=== PATIENT | male | born 1955 | race Caucasian/White ===

== ENCOUNTER 2016-07-12 22:27 | Inpatient (IN) | payer OTHER, MEDICARE ==
[2016-07-12 23:02] LABS: BASOPHIL 0.5 % (0-2); EOSINOPHIL 0.1 % (0-5); HCT 50.1 % (42.0-52.0); HGB 16.1 g/dl (13.2-18.0); MCH 29.1 pg (25.0-31.0); MCHC 32.1 g/dL (32.0-36.0); MCV 90.6 fL (78.0-100.0); MONOCYTE 4.6 % (0-12); MPV 10.4 fL (6.0-9.5); NEUTROPHIL 87.8 % (41-80); PLT 213 K/uL (150-400); RBC 5.53 M/uL (4.70-6.00); WBC 13.2 K/uL (4.0-10.5)
[2016-07-12 23:03] LABS: BILIRUBIN NEGATIVE (NEGATIVE); BLOOD TRACE-INTACT Ery/uL (NEGATIVE); CLARITY CLEAR (CLEAR); COLOR YELLOW (YELLOW); GLUCOSE (U) NORMAL (NORMAL); KETONE (U) NEGATIVE (NEGATIVE); LEUKOCYTES NEGATIVE Leu/uL (NEGATIVE); NITRITE NEGATIVE (NEGATIVE); PROTEIN TRACE (LOW) mg/dL (NEGATIVE); SPECIFIC GRAVITY 1.025 (1.001-1.030); UROBILINOGEN 0.2 mg/dL (0.2-1.0); pH 5.5 (5.0-9.0)
[2016-07-12 23:08] LABS: BACTERIA TRACE; MUCOUS MODERATE
[2016-07-12 23:12] LABS: INR 1.11 (0.9-1.2); PROTHROMBIN TIME 13.9 SECONDS (11.7-14.0); PTT 29.7 SECONDS (23.2-31.4)
[2016-07-12 23:13] LABS: AMPHETAMINES NEGATIVE (NEGATIVE); BARBITURATES NEGATIVE (NEGATIVE); BENZODIAZEPINES NEGATIVE (NEGATIVE); COCAINE NEGATIVE (NEGATIVE); MARIJUANA (THC) NEGATIVE (NEGATIVE); METHADONE NEGATIVE (NEGATIVE); TRICYCLIC ANTIDEPRESSANT POSITIVE (NEGATIVE)
[2016-07-12 23:24] LABS: CKMB 4.33 ng/mL (0.97-4.94); LACTIC ACID 2.4 mmol/L (0.5-2.2); TROPONIN T 0.026 ng/mL
[2016-07-12 23:25] LABS: ALBUMIN 4.5 g/dL (3.4-4.8); BILIRUBIN - TOTAL 0.4 mg/dL (0.1-1.0); CREATININE 1.2 mg/dL (0.7-1.2); GLOBULIN (CALCULATION) 2.7 g/dL (2.2-4.2); POTASSIUM 4.8 mmol/L (3.5-5.1); TOTAL PROTEIN 7.2 g/dL (6.4-8.3)
[2016-07-12 23:47] LABS: ACETAMINOPHEN (TYLENOL) < 5.0 ug/mL (10.0-30.0); SALICYLATE < 6 ug/mL (0-300)
[2016-07-13 05:12] LABS: BASOPHIL 0.1 % (0-2); EOSINOPHIL 0 % (0-5); HCT 41.8 % (42.0-52.0); HGB 13.6 g/dl (13.2-18.0); LYMPHOCYTE 7.7 % (15-48); MCHC 32.5 g/dL (32.0-36.0); MCV 89.1 fL (78.0-100.0); MPV 10.5 fL (6.0-9.5); NEUTROPHIL 91.2 % (41-80); PLT 170 K/uL (150-400); RBC 4.69 M/uL (4.70-6.00); RDW 14.8 % (11.5-14.0); WBC 7.9 K/uL (4.0-10.5)
[2016-07-13 05:33] LABS: CKMB 2.34 ng/mL (0.97-4.94); TROPONIN T < 0.010 ng/mL
[2016-07-13 05:35] LABS: CREATININE 0.9 mg/dL (0.7-1.2); POTASSIUM 4.3 mmol/L (3.5-5.1)
[2016-07-13 11:35] LABS: CREATININE 0.9 mg/dL (0.7-1.2); MAGNESIUM 1.57 mg/dL (1.40-2.10); POTASSIUM 4.8 mmol/L (3.5-5.1)
[2016-07-13 11:36] LABS: CKMB 2.17 ng/mL (0.97-4.94); TROPONIN T < 0.010 ng/mL
[2016-07-14 04:13] LABS: BASOPHIL 0 % (0-2); EOSINOPHIL 0 % (0-5); HCT 41.9 % (42.0-52.0); HGB 13.7 g/dl (13.2-18.0); LYMPHOCYTE 9.4 % (15-48); MCH 28.6 pg (25.0-31.0); MCHC 32.7 g/dL (32.0-36.0); MCV 87.5 fL (78.0-100.0); MONOCYTE 3.3 % (0-12); MPV 10.8 fL (6.0-9.5); NEUTROPHIL 87.3 % (41-80); PLT 172 K/uL (150-400); RBC 4.79 M/uL (4.70-6.00); RDW 14.5 % (11.5-14.0); WBC 9.6 K/uL (4.0-10.5)
[2016-07-14 04:41] LABS: ALBUMIN 3.4 g/dL (3.4-4.8); BILIRUBIN - TOTAL 0.3 mg/dL (0.1-1.0); CREATININE 0.9 mg/dL (0.7-1.2); GLOBULIN (CALCULATION) 1.7 g/dL (2.2-4.2); MAGNESIUM 1.73 mg/dL (1.40-2.10); POTASSIUM 4.1 mmol/L (3.5-5.1); TOTAL PROTEIN 5.1 g/dL (6.4-8.3)
[2016-07-15 04:39] LABS: BASOPHIL 0 % (0-2); EOSINOPHIL 0 % (0-5); HGB 13.6 g/dl (13.2-18.0); LYMPHOCYTE 7.9 % (15-48); MCH 28.8 pg (25.0-31.0); MCHC 33.2 g/dL (32.0-36.0); MCV 86.7 fL (78.0-100.0); MONOCYTE 4.3 % (0-12); NEUTROPHIL 87.8 % (41-80); PLT 187 K/uL (150-400); RBC 4.73 M/uL (4.70-6.00); RDW 14.7 % (11.5-14.0); WBC 9.6 K/uL (4.0-10.5)
[2016-07-15 04:55] LABS: CREATININE 0.8 mg/dL (0.7-1.2); POTASSIUM 4.2 mmol/L (3.5-5.1)
[2016-07-16 04:56] LABS: BASOPHIL 0 % (0-2); EOSINOPHIL 0 % (0-5); HCT 41.1 % (42.0-52.0); HGB 13.5 g/dl (13.2-18.0); LYMPHOCYTE 5.9 % (15-48); MCH 28.5 pg (25.0-31.0); MCHC 32.8 g/dL (32.0-36.0); MCV 86.7 fL (78.0-100.0); MONOCYTE 3.6 % (0-12); NEUTROPHIL 90.5 % (41-80); PLT 172 K/uL (150-400); RBC 4.74 M/uL (4.70-6.00); RDW 14.8 % (11.5-14.0)
[2016-07-16 05:02] LABS: WBC 8.4 K/uL (4.0-10.5)
[2016-07-16 05:19] LABS: ALBUMIN 3.4 g/dL (3.4-4.8); BILIRUBIN - TOTAL 0.5 mg/dL (0.1-1.0); CREATININE 0.8 mg/dL (0.7-1.2); GLOBULIN (CALCULATION) 1.4 g/dL (2.2-4.2); MAGNESIUM 2.06 mg/dL (1.40-2.10); POTASSIUM 4.2 mmol/L (3.5-5.1); TOTAL PROTEIN 4.8 g/dL (6.4-8.3)
[2016-07-17 04:41] LABS: BASOPHIL 0 % (0-2); EOSINOPHIL 0 % (0-5); HCT 41.5 % (42.0-52.0); HGB 13.8 g/dl (13.2-18.0); LYMPHOCYTE 5.5 % (15-48); MCH 28.8 pg (25.0-31.0); MCHC 33.3 g/dL (32.0-36.0); MCV 86.5 fL (78.0-100.0); MONOCYTE 3.1 % (0-12); MPV 11.1 fL (6.0-9.5); NEUTROPHIL 91.4 % (41-80); PLT 169 K/uL (150-400); RDW 14.7 % (11.5-14.0); WBC 7.7 K/uL (4.0-10.5)
[2016-07-17 05:18] LABS: CREATININE 0.9 mg/dL (0.7-1.2); MAGNESIUM 2.05 mg/dL (1.40-2.10); POTASSIUM 4.1 mmol/L (3.5-5.1)
[2016-07-18 06:46] LABS: BASOPHIL 0 % (0-2); EOSINOPHIL 0 % (0-5); HCT 40.6 % (42.0-52.0); HGB 13.5 g/dl (13.2-18.0); LYMPHOCYTE 4.2 % (15-48); MCH 28.7 pg (25.0-31.0); MCHC 33.3 g/dL (32.0-36.0); MCV 86.2 fL (78.0-100.0); MONOCYTE 3.8 % (0-12); MPV 11.1 fL (6.0-9.5); PLT 176 K/uL (150-400); RBC 4.71 M/uL (4.70-6.00); RDW 14.4 % (11.5-14.0); WBC 9.6 K/uL (4.0-10.5)
[2016-07-18 06:59] LABS: CREATININE 0.8 mg/dL (0.7-1.2); POTASSIUM 3.7 mmol/L (3.5-5.1)
[2016-07-19 04:04] LABS: HCT 46.4 % (42.0-52.0); HGB 15.3 g/dl (13.2-18.0); MCH 28.3 pg (25.0-31.0); MCV 85.9 fL (78.0-100.0); MPV 11.3 fL (6.0-9.5); RBC 5.4 M/uL (4.70-6.00); RDW 14.6 % (11.5-14.0)
[2016-07-19 04:28] LABS: CREATININE 0.9 mg/dL (0.7-1.2); MAGNESIUM 2.08 mg/dL (1.40-2.10); POTASSIUM 4.4 mmol/L (3.5-5.1)
[2016-07-20 05:21] LABS: BASOPHIL 0 % (0-2); EOSINOPHIL 0 % (0-5); HCT 40.4 % (42.0-52.0); HGB 13.3 g/dl (13.2-18.0); LYMPHOCYTE 3.2 % (15-48); MCH 28.6 pg (25.0-31.0); MCHC 32.9 g/dL (32.0-36.0); MCV 86.9 fL (78.0-100.0); MONOCYTE 3.1 % (0-12); MPV 10.7 fL (6.0-9.5); NEUTROPHIL 93.7 % (41-80); PLT 169 K/uL (150-400); RBC 4.65 M/uL (4.70-6.00); RDW 14.6 % (11.5-14.0); WBC 13.1 K/uL (4.0-10.5)
[2016-07-20 05:37] LABS: CREATININE 0.9 mg/dL (0.7-1.2); POTASSIUM 4.5 mmol/L (3.5-5.1)
[2016-07-20] MEDS ORDERED: TOPROL XL100 MG PO (10:40)
[2016-07-20] MEDS ORDERED: ALDACTONE25 MG PO (10:40)
[2016-07-20] MEDS ORDERED: MELATIN3 MG PO (10:41)
[2016-07-20] MEDS ORDERED: ASPIRIN CHEWABL81 MG PO (10:41)
[2016-07-20] MEDS ORDERED: DILTIAZEM 24HR300 M1 PO (10:41)
[2016-07-20] MEDS ORDERED: XANAX0.5 MG PO (10:43)
[2016-07-20] MEDS ORDERED: DUONEB 2.5-0.5M1 AMP NEB (10:43)
[2016-07-20] MEDS ORDERED: MEDROL 4MG DOSEP4 MG PO (10:43)
[2017-01-04] MEDS ORDERED: DIGITEK250 MCG PO (10:41)
[2017-01-04] MEDS ORDERED: PREDNISONE 10MG10 MG PO (13:10)
[2017-01-04] MEDS ORDERED: NYSTATIN SUSP1 ML/ML SSW (13:10)
[2017-01-04] MEDS ORDERED: CEFDINIR300 MG PO (13:11)
[2017-01-04] MEDS ORDERED: AZITHROMYCIN250 MG PO (13:12)
[2017-01-04] MEDS ORDERED: NEURONTIN400 MG PO (13:20)
[2017-01-04] MEDS ORDERED: PROAIR HFA8.5 GM INH (13:20)
[2017-01-04] MEDS ORDERED: SYMBICORT 16010.2 GM INH (13:20)
[2017-01-04] MEDS ORDERED: DEPAKOTE250 MG PO (13:20)
[2017-01-04] MEDS ORDERED: ZOLOFT50 MG PO (13:23)
[2017-01-04] MEDS ORDERED: CARDIZEM CD240 MG PO (17:09)
== END 2016-07-20 13:15 | disposition home health service (06) | DRG 871 ==
LOC: FER 22:27 → FICU 07-13 01:06 → FTCU 07-17 16:00
PROVIDERS: Emergency Medicine; Internal Medicine; Internal Medicine Nephrology; ADMIT Internal Medicine
PROC: 0BH17EZ Insertion of Endotracheal Airway into Trachea, Via Natural or Artificial Opening (ICD-10-PCS; principal; 2016-07-13)
PROC: 5A1945Z Respiratory Ventilation, 24-96 Consecutive Hours (ICD-10-PCS; 2016-07-13)
DX: A41.9 Sepsis, unspecified organism (principal); J18.9 Pneumonia, unspecified organism; J96.21 Acute and chronic respiratory failure with hypoxia; G93.41 Metabolic encephalopathy; I13.0 Hypertensive heart and chronic kidney disease with heart failure and stage 1 through stage 4 chronic kidney disease, or unspecified chronic kidney disease; N17.9 Acute kidney failure, unspecified; E87.2 Acidosis; J44.1 Chronic obstructive pulmonary disease with (acute) exacerbation; N18.3 Chronic kidney disease, stage 3 (moderate); I50.32 Chronic diastolic (congestive) heart failure; J96.22 Acute and chronic respiratory failure with hypercapnia; R65.20 Severe sepsis without septic shock; T40.2X1A Poisoning by other opioids, accidental (unintentional), initial encounter; I25.10 Atherosclerotic heart disease of native coronary artery without angina pectoris; Z79.01 Long term (current) use of anticoagulants; I48.2 Chronic atrial fibrillation; F17.200 Nicotine dependence, unspecified, uncomplicated; Z79.82 Long term (current) use of aspirin; Z88.0 Allergy status to penicillin; E78.00 Pure hypercholesterolemia, unspecified; R73.9 Hyperglycemia, unspecified; F31.9 Bipolar disorder, unspecified
CPT/HCPCS: 31500; 36415; 36600; 70450; 71010; 80048; 80053; 80061; 80162; 80305; 81001; 82140; 82550; 82553; 82803; 82962; 83605; 83735; 83874; 84484; 85025; 85610; 85730; 87040; 87070; 87088; 87205; 92950; 93005; 94002; 94010; 94640; 94664; 94667; 94668; 97110; 97116; 97162; 97166; 97530; 97530-GP; 97535; C9113; G0480; J0456; J0692; J1160; J1170; J1644; J1956; J2270; J2310; J2405; J2704; J2930

== ENCOUNTER 2016-07-22 17:58 | Inpatient (IN) | payer MEDICARE, OTHER ==
[~2016-07-22 17:58] MED LIST: ALDACTONE25 MG PO; ASPIRIN CHEWABL81 MG PO; DILTIAZEM 24HR300 M1 PO; DUONEB 2.5-0.5M1 AMP NEB; MEDROL 4MG DOSEP4 MG PO; MELATIN3 MG PO; TOPROL XL100 MG PO; XANAX0.5 MG PO
[2016-07-22 18:23] LABS: BASOPHIL 0.1 % (0-2); EOSINOPHIL 0.1 % (0-5); HCT 53.1 % (42.0-52.0); HGB 16.9 g/dl (13.2-18.0); MCH 28.6 pg (25.0-31.0); MCHC 31.8 g/dL (32.0-36.0); MONOCYTE 8.4 % (0-12); MPV 10.6 fL (6.0-9.5); NEUTROPHIL 86.4 % (41-80); PLT 255 K/uL (150-400); RDW 15.5 % (11.5-14.0)
[2016-07-22 18:26] LABS: WBC 23.8 K/uL (4.0-10.5)
[2016-07-22 18:29] LABS: INR 0.92 (0.9-1.2); PTT 22.4 SECONDS (23.2-31.4)
[2016-07-22 18:40] LABS: CREATININE 0.9 mg/dL (0.7-1.2); POTASSIUM 4.1 mmol/L (3.5-5.1)
[2016-07-22 18:41] LABS: TROPONIN T < 0.010 ng/mL
[2016-07-22 18:43] LABS: PRO-BNP 2588 pg/mL (0-125)
[2016-07-22 19:22] LABS: BILIRUBIN NEGATIVE (NEGATIVE); BLOOD NEGATIVE Ery/uL (NEGATIVE); CLARITY CLEAR (CLEAR); COLOR COLORLESS (YELLOW); GLUCOSE (U) NORMAL (NORMAL); KETONE (U) NEGATIVE (NEGATIVE); LEUKOCYTES NEGATIVE Leu/uL (NEGATIVE); NITRITE NEGATIVE (NEGATIVE); PROTEIN NEGATIVE (NEGATIVE); UROBILINOGEN 0.2 mg/dL (0.2-1.0); pH 5.5 (5.0-9.0)
[2016-07-22 19:35] LABS: AMPHETAMINES NEGATIVE (NEGATIVE); BARBITURATES NEGATIVE (NEGATIVE); BENZODIAZEPINES NEGATIVE (NEGATIVE); COCAINE NEGATIVE (NEGATIVE); MARIJUANA (THC) NEGATIVE (NEGATIVE); METHADONE NEGATIVE (NEGATIVE); TRICYCLIC ANTIDEPRESSANT NEGATIVE (NEGATIVE)
[2016-07-23 04:39] LABS: BASOPHIL 0.1 % (0-2); EOSINOPHIL 0 % (0-5); HCT 44.2 % (42.0-52.0); HGB 14.1 g/dl (13.2-18.0); LYMPHOCYTE 2.4 % (15-48); MCH 28.6 pg (25.0-31.0); MCHC 31.9 g/dL (32.0-36.0); MCV 89.7 fL (78.0-100.0); MONOCYTE 2.2 % (0-12); MPV 10.8 fL (6.0-9.5); NEUTROPHIL 95.3 % (41-80); PLT 199 K/uL (150-400); RBC 4.93 M/uL (4.70-6.00); RDW 15.2 % (11.5-14.0); WBC 17.4 K/uL (4.0-10.5)
[2016-07-23 04:52] LABS: BILIRUBIN - TOTAL 0.4 mg/dL (0.1-1.0); CREATININE 0.7 mg/dL (0.7-1.2); GLOBULIN (CALCULATION) 1.4 g/dL (2.2-4.2); POTASSIUM 4.4 mmol/L (3.5-5.1); TOTAL PROTEIN 4.4 g/dL (6.4-8.3)
--- NOTE | 2016-07-24 03:00 | NUR ---
TIME CHANGED FROM 0200 TO 0300 EST.
[2016-07-24 03:49] LABS: HCT 40.1 % (42.0-52.0); MCH 28.7 pg (25.0-31.0); MCHC 32.4 g/dL (32.0-36.0); MCV 88.5 fL (78.0-100.0); MPV 10.6 fL (6.0-9.5); RBC 4.53 M/uL (4.70-6.00); RDW 15.2 % (11.5-14.0); WBC 15.4 K/uL (4.0-10.5)
[2016-07-24 04:07] LABS: CREATININE 0.9 mg/dL (0.7-1.2)
[2016-07-25 03:55] LABS: HCT 41.2 % (42.0-52.0); HGB 13.3 g/dl (13.2-18.0); MCH 28.6 pg (25.0-31.0); MCHC 32.3 g/dL (32.0-36.0); MCV 88.6 fL (78.0-100.0); MPV 10.1 fL (6.0-9.5); RBC 4.65 M/uL (4.70-6.00); RDW 15.2 % (11.5-14.0); WBC 15.3 K/uL (4.0-10.5)
[2016-07-25 04:09] LABS: CREATININE 0.9 mg/dL (0.7-1.2)
[2016-07-25 18:42] LABS: BILIRUBIN NEGATIVE (NEGATIVE); BLOOD NEGATIVE Ery/uL (NEGATIVE); CLARITY CLEAR (CLEAR); COLOR YELLOW (YELLOW); GLUCOSE (U) NORMAL (NORMAL); KETONE (U) NEGATIVE (NEGATIVE); LEUKOCYTES NEGATIVE Leu/uL (NEGATIVE); NITRITE NEGATIVE (NEGATIVE); PROTEIN NEGATIVE (NEGATIVE); SPECIFIC GRAVITY <=1.005 (1.001-1.030); UROBILINOGEN 0.2 mg/dL (0.2-1.0)
[2016-07-25 18:50] LABS: BACTERIA TRACE; SQUAMOUS EPITHELIAL CELLS RARE; URINARY RBC RARE; URINARY WBC RARE
[2016-07-26 04:09] LABS: BASOPHIL 0 % (0-2); EOSINOPHIL 1.2 % (0-5); HCT 40.5 % (42.0-52.0); MCH 28.6 pg (25.0-31.0); MCHC 32.1 g/dL (32.0-36.0); MONOCYTE 6.9 % (0-12); MPV 10.5 fL (6.0-9.5); NEUTROPHIL 70.9 % (41-80); PLT 188 K/uL (150-400); RBC 4.55 M/uL (4.70-6.00); RDW 15.3 % (11.5-14.0)
[2016-07-26 04:30] LABS: ALBUMIN 3.2 g/dL (3.4-4.8); BILIRUBIN - TOTAL 0.4 mg/dL (0.1-1.0); CREATININE 0.8 mg/dL (0.7-1.2); GLOBULIN (CALCULATION) 1.5 g/dL (2.2-4.2); POTASSIUM 4.2 mmol/L (3.5-5.1); TOTAL PROTEIN 4.7 g/dL (6.4-8.3)
[2016-07-27] MEDS ORDERED: CARDIZEM CD180 MG PO (17:09)
[2016-07-27] MEDS ORDERED: BUMEX1 MG PO (17:09)
[2017-01-04] MEDS ORDERED: DIGITEK250 MCG PO (10:41)
[2017-01-04] MEDS ORDERED: NYSTATIN SUSP1 ML/ML SSW (13:10)
[2017-01-04] MEDS ORDERED: PREDNISONE 10MG10 MG PO (13:10)
[2017-01-04] MEDS ORDERED: CEFDINIR300 MG PO (13:11)
[2017-01-04] MEDS ORDERED: AZITHROMYCIN250 MG PO (13:12)
[2017-01-04] MEDS ORDERED: PROAIR HFA8.5 GM INH (13:20)
[2017-01-04] MEDS ORDERED: DEPAKOTE250 MG PO (13:20)
[2017-01-04] MEDS ORDERED: NEURONTIN400 MG PO (13:20)
[2017-01-04] MEDS ORDERED: SYMBICORT 16010.2 GM INH (13:20)
[2017-01-04] MEDS ORDERED: ZOLOFT50 MG PO (13:23)
[2017-01-04] MEDS ORDERED: CARDIZEM CD240 MG PO (17:09)
== END 2016-07-27 13:29 | disposition home health service (06) | DRG 189 ==
LOC: FER 17:58 → FICU 21:21 → FTCU 07-25 10:58
PROVIDERS: Internal Medicine; Nurse Practitioner Family; ADMIT Internal Medicine
DX: J96.22 Acute and chronic respiratory failure with hypercapnia (principal); R65.11 Systemic inflammatory response syndrome (SIRS) of non-infectious origin with acute organ dysfunction; G93.40 Encephalopathy, unspecified; G93.41 Metabolic encephalopathy; J44.1 Chronic obstructive pulmonary disease with (acute) exacerbation; I11.9 Hypertensive heart disease without heart failure; I10 Essential (primary) hypertension; E87.70 Fluid overload, unspecified; F17.200 Nicotine dependence, unspecified, uncomplicated; F11.10 Opioid abuse, uncomplicated; J44.9 Chronic obstructive pulmonary disease, unspecified; F43.10 Post-traumatic stress disorder, unspecified; F42.9 Obsessive-compulsive disorder, unspecified; I25.10 Atherosclerotic heart disease of native coronary artery without angina pectoris; J96.21 Acute and chronic respiratory failure with hypoxia; I48.2 Chronic atrial fibrillation; Z95.0 Presence of cardiac pacemaker; Z99.81 Dependence on supplemental oxygen; Z79.82 Long term (current) use of aspirin; Z88.0 Allergy status to penicillin; F17.210 Nicotine dependence, cigarettes, uncomplicated; R41.0 Disorientation, unspecified; E78.00 Pure hypercholesterolemia, unspecified; I25.2 Old myocardial infarction
CPT/HCPCS: 36415; 36600; 71010; 72170; 80048; 80053; 80162; 80305; 81001; 81003; 82803; 83605; 83880; 84484; 85025; 85610; 85730; 87040; 93005; 94640; 94664; 97110; 97116; 97163; 97167; 97530; 97530-GP; 97535; J1160; J1940; J1956; J2310; J2930